=== PATIENT | male | born 1940 | race African-American/Black ===

== ENCOUNTER 2019-04-18 17:27 | Emergency (ER) | payer MEDICARE, MEDICAID ==
[~2019-04-18] VITALS: Ht 177.8 cm; Wt 81.0 kg
[~2019-04-18 17:27] MED LIST: METF100010 PO; METF500T17 PO
--- NOTE | 2019-04-18 18:10 | NUR ---
Patient to CT.
[2019-04-18] MEDS ORDERED: METOCLOPRAMIDE 5 MG/ML, 2ML IVPush ONE (18:30)
[2019-04-18] MEDS ORDERED: DIPHENHYDRAMINE 50 MG/ML, 1ML IVPush ONE (18:30)
[2019-04-18] MEDS ORDERED: DIPHENHYDRAMINE 50 MG/ML, 1ML ONE (18:36)
[2019-04-18] MEDS ORDERED: KETOROLAC 30 MG/1 ML ONE (18:36)
[2019-04-18] MEDS ORDERED: METOCLOPRAMIDE 5 MG/ML, 2ML ONE (18:36)
--- NOTE | 2019-04-18 18:49 | NUR ---
Continues to have C/O MADRID. IV started, labs drawn, and meds admin. Remains hypertensive.
[2019-04-18] MEDS ORDERED: KETOROLAC 30 MG/1 ML IVPush ONE (19:00)
--- NOTE | 2019-04-18 19:06 | NUR ---
Ambulated with a steady gait to the restroom.
[2019-04-18 19:10] LABS: BASOPHILS # (AUTO) 0.01 x10^3/uL (0-0.1); BASOPHILS % (AUTO) 0 % (0-1); EOSINOPHILS # (AUTO) 0.46 x10^3/uL (0-0.4); EOSINOPHILS % (AUTO) 11 % (1-7); LYMPHOCYTES # (AUTO) 1.01 x10^3/uL (1-3.4); LYMPHOCYTES % (AUTO) 24 % (22-44); MD NO; MEAN CORPUSCULAR HEMOGLOBIN 32.5 pg (27.5-34.5); MEAN CORPUSCULAR HGB CONC 32.9 g/dL (33.2-36.2); MEAN CORPUSCULAR VOLUME 98.8 fL (81-97); MEAN PLATELET VOLUME 7.2 fL (7.4-10.4); MONOCYTES % (AUTO) 7 % (2-9); NEUTROPHILS # (AUTO) 2.42 x10^3/uL (1.8-6.8); NEUTROPHILS % (AUTO) 58 % (42-75); PLATELET COUNT 277 x10^3/uL (130-400); RED BLOOD COUNT 4.24 x10^6/uL (4.38-5.82); RED CELL DISTRIBUTION WIDTH 13.1 % (9.4-14.8)
[2019-04-18 19:14] LABS: ALBUMIN 3.7 g/dL (3.4-5.0); ANION GAP 5 mmol/L (5-15); CALCIUM 8.8 mg/dL (8.5-10.1); CHLORIDE 106 mmol/L (98-107); CREATININE 0.86 mg/dL (0.7-1.3)
[2019-04-18] MEDS ORDERED: LIDOCAINE-MPF 1%, 5ML ONE ×2 (19:52)
[2019-04-18] MEDS ORDERED: LIDOCAINE-MPF 1%, 5ML INFIL ONE (20:00)
[2019-04-18 20:12] VITALS: BP 178/87
--- NOTE | 2019-04-18 20:12 | NUR ---
BP and MADRID improved. aware.
--- NOTE | 2019-04-18 20:24 | NUR ---
Patient/Caregiver given discharge instructions and they have confirmed that they understand the instructions. Patient ambulatory with steady gait.
== END 2019-04-18 20:26 | disposition home or self-care (01) ==
LOC: ED 20:20
DX: S01.511D Laceration without foreign body of lip, subsequent encounter (principal); K13.0 Diseases of lips; X58.XXXD Exposure to other specified factors, subsequent encounter; I10 Essential (primary) hypertension; G44.219 Episodic tension-type headache, not intractable; E11.9 Type 2 diabetes mellitus without complications
CPT/HCPCS: 36415; 70450; 80048; 82040; 85025; 93005; 96374; 96375; 99284; J1200; J1885; J2765